=== PATIENT | male | born 1990 | race Caucasian/White ===

== ENCOUNTER 2016-04-16 15:09 | Emergency (ER) | payer OTHER ==
[2016-04-16 15:27] VITALS: BP 128/64; PULSE 65; RESP 16; TEMP 98.2; O2SAT 97
--- NOTE | 2016-04-16 15:51 | UCPHY ---
H & P Time Seen by Provider: 04/16/16 15:29 Patient Type: Established HPI/ROS: CHIEF COMPLAINT: Nausea, vomiting diarrhea HISTORY OF PRESENT ILLNESS: Patient is a 25-year-old male who presents to the emergency department with chronic complaints of nausea, intermittent vomiting and diarrhea. Patient states that primarily occurs after eating but can be variable. Both vomiting and diarrhea are nonbloody. He states he has diarrhea all the time for months. He has intermittent abdominal pain. He has no abdominal pain at this time. He is not lightheaded or dizzy. He denies fevers or chills. He has no dysuria frequency. He has no change in weight. REVIEW OF SYSTEMS: My complete review of systems is negative except as mentioned in the HPI. Past Medical/Surgical History: Attention deficit hyperactivity disorder Past surgical history: Patella surgery Social history: Patient does not smoke or use drugs. Smoking Status: Current every day smoker Physical Exam: 36.8, 128/64, 65, 16, 97% on room air GENERAL: Well-appearing, in no acute distress, alert. HEENT: Eyes normal to inspection, normal pharynx, no signs of dehydration. NECK: No thyromegaly, no lymphadenopathy, supple. RESPIRATORY: Clear to auscultation bilaterally, no rales, rhonchi or wheezing. CVS: Regular rate and rhythm, no rubs, murmurs, or gallops. ABDOMEN: Soft, nontender, nondistended, no organomegaly. Normal BACK: Normal to inspection, no CVA tenderness. SKIN: Normal color, no rash, warm, dry. No pallor. EXTREMITIES: No pedal edema, no joint swelling. NEURO/PSYCH: Alert and oriented, normal mood and affect, normal motor sensory exam. No obvious cranial nerve deficit. Constitutional: Initial Vital Signs Temperature (C) 36.8 C 04/16/16 15:23 Heart Rate 65 04/16/16 15:23 Respiratory Rate 16 04/16/16 15:23 Blood Pressure 128/64 H 04/16/16 15:23 O2 Sat (%) 97 04/16/16 15:23 O2 Delivery Mode Room Air Allergies/Adverse Reactions: No Known Allergies Allergy (Verified 04/16/16 15:22) Home Medications: Medication Instructions Recorded Famotidine [Pepcid 20 MG (*)] 20 mg PO BID #14 tab 04/16/16 Ondansetron Odt [Zofran Odt 4 mg 4 mg PO Q4PRN PRN #13 tab 04/16/16 (*)] Medical Decision Making ED Course/Re-evaluation: I discussed possible etiologies with the patient. I answered all his questions. Patient will follow up with Gastroenterology. He is given contact information. The patient will take Pepcid for the next 2 weeks. Patient was given a short course of Zofran to help with the symptoms. He was given warnings prior to leaving. He will return with worsening symptoms. Patient appears well on his physical exam he has normal vital signs. I do not feel he needs laboratory studies or imaging at this time. He will have close follow-up as above. Differential Diagnosis: My differential includes but is not limited to peptic ulcer disease, pancreatitis, cholecystitis, Crohn's disease, ulcerative colitis, IBS, electrolyte abnormality, sugar abnormality, dehydration, mass, malignancy Departure - Departure Disposition: Home, Routine, Self-Care Clinical Impression: Vomiting Qualifiers: Vomiting type: unspecified Vomiting Intractability: non-intractable Nausea presence: with nausea Qualified Code(s): R11.2 - Nausea with vomiting, unspecified Diarrhea Qualifiers: Diarrhea type: unspecified type Qualified Code(s): R19.7 - Diarrhea, unspecified Condition: Good Instructions: Acute Nausea and Vomiting (ED), Chronic Diarrhea (ED) Referrals: Gastroenterology [facility] [Provider Group] - 5-7 days, call for appt. Prescriptions: Famotidine [Pepcid 20 MG (*)] 20 mg PO BID #14 tab Ondansetron Odt [Zofran Odt 4 mg (*)] 4 mg PO Q4PRN PRN #13 tab PRN Reason: For Nausea & Vomiting - PQRS PQRS Measurement: My PQRS negative my PQRS negative my PQRS negative my PQRS negative 134: Depression screening and followup, PRIME MD-PHQ2 (12 years and older) Over the last 2 weeks, how often have you been bothered by any of the following problems? 1. Feeling down, depressed, or hopeless? 2. Little interest or pleasure in doing things? Patient answered no to both 1 and 2 130: Documentation of medications. Reviewed all patient medications, doses, route and frequency. 226: Do you smoke? No.
== END 2016-04-16 15:55 | disposition home or self-care (01) ==
LOC: CED 15:09
DX: R11.2 Nausea with vomiting, unspecified (principal); R19.7 Diarrhea, unspecified; F90.9 Attention-deficit hyperactivity disorder, unspecified type
CPT/HCPCS: 99214-PO; G0463-PO

== ENCOUNTER → 2017-10-15 | Outpatient (CLI) | payer OTHER | LOC: FIMAGING 09:30 | PROVIDERS: ATTEND Family Medicine | DX: Z13.83 Encounter for screening for respiratory disorder NEC (principal) ==

== ENCOUNTER 2018-06-17 03:24 | Emergency (ER) | payer SELFPAY | END 2018-06-17 04:22 | disposition home or self-care (01) | DX: S63.91XA Sprain of unspecified part of right wrist and hand, initial encounter (principal); S60.221A Contusion of right hand, initial encounter; X50.9XXA Other and unspecified overexertion or strenuous movements or postures, initial encounter; Y93.71 Activity, boxing ==